=== PATIENT | female | born 1985 | race Caucasian/White ===

== ENCOUNTER 2017-01-28 04:45 | Emergency (ER) | payer SELFPAY ==
--- NOTE | ~2017-01-28 | CR72 ---
[facility] A Service of [facility] & [facility] RADIOLOGY TEXT RESULTS PATIENT: GUI GREENFIELD LOCATION: [facility] : 83 UNIT #: [id number] AGE: [address]: Abby Thacker MD SEX: F ORDER DR: [id number] [facility] [address] [place], [place] [address] [id number] MR#: [id number] Acc #: [id number] NAME: GUI GREENFIELD : 1985 SEX: F STUDY DATE/TIME: 01/28/2017 05:16 UNIT: [facility] ROOM: STUDY DESCRIPTION: CR Chest Single View Portable Attending Physician: Abby Thacker M.D. Ordering Physician: Yulia Cade A.P.R.N. Primary Care Physician: Primary Care Physician No MEDICAL IMAGING REPORT This report is preliminary unless electronic signature is present EXAM Portable chest 01/28/2017 0516 hours INDICATION Chest pain that started this morning. FINDINGS A single AP portable view of the chest shows both lungs to be clear. The heart is normal in size. The mediastinal contour is normal. No significant bone abnormalities are seen. IMPRESSION Normal portable chest. Dictated by... Sinan Davidson Jr., M.D. THIS IS AN ELECTRONICALLY VERIFIED REPORT Sinan Davidson Jr., M.D. at 01/28/2017 10:03 PM [place]/joseline TD: 01/28/2017 08:41 JOB #: [id number] MEDICAL IMAGING REPORT COPY
--- NOTE | ~2017-01-28 | EKG ---
PATIENT: GUI GREENFIELD UNIT #: [id number] Ventricular Rate: 66 BPM Atrial Rate: 66 BPM P-R Interval: 118 ms QRS Duration: 96 ms Q-T Interval: 418 ms QTC Calculation(Bezet): 438 ms P Catlett: 73 degrees Calculated R Catlett: 79 degrees Calculated T Catlett: 63 degrees Diagnosis Line: Normal sinus rhythm Diagnosis Line: Normal ECG Diagnosis Line: No previous ECGs available Diagnosis Line: Confirmed by BUD MORENO MD ([id number]) on 01/28/2017 Diagnosis Line: 5:45:53 PM INTERPRETING MD: TIFFANIE LAGUERRE
[2017-01-28 05:28] LABS: URINE SOURCE CLEAN CATCH
[2017-01-28 05:48] LABS: BASOPHIL# 0.1 X10e3 (0-0.3); BASOPHIL% 0.5 % (0-2.5); EOSINOPHIL# 0.5 X10e3 (0-0.7); EOSINOPHIL% 3.5 % (0.0-7.0); HEMATOCRIT 34.4 % (35.0-45.0); HEMOGLOBIN 11.4 gm/dL (12.0-16.0); LYMPHOCYTE# 3.6 X10e3 (1.0-3.5); LYMPHOCYTE% 26.3 % (17.0-45.0); MEAN CELL VOLUME 84.7 FL (83-96); MEAN CORPUSCULAR HEMOGLOBIN 28.2 PG (28-34); MEAN CORPUSCULAR HGB CONC 33.3 g/dL (30-36); MEAN PLATELET VOLUME 7.6 FL (6.5-11.5); MONOCYTE# 0.9 X10e3 (0-1.0); MONOCYTE% 6.6 % (3.0-12.0); NEUTROPHIL# 8.7 X10e3 (1.5-7.1); NEUTROPHIL% 63.1 % (40-75); PLATELET COUNT 315 X10e3 (140-420); RED BLOOD COUNT 4.06 X10e (3.90-5.30); RED CELL DISTRIBUTION WIDTH 13.9 % (11.0-15.5); WHITE BLOOD COUNT 13.8 X10e3 (4.0-10.5)
[2017-01-28 05:57] LABS: URINE APPEARANCE TURBID; URINE BILIRUBIN NEG (NEG); URINE BLOOD NEG (NEG); URINE COLOR DK YELLOW; URINE GLUCOSE NEG (NEG); URINE KETONE TRACE (NEG); URINE LEUKOCYTE ESTERASE TRACE (NEG); URINE NITRATE NEG (NEG); URINE PH 5.5 (5-8); URINE PROTEIN NEG (NEG)
[2017-01-28 05:58] LABS: DIFF IND NO
[2017-01-28 06:09] LABS: URINE SQUAMOUS EPITHELIAL CELL FEW /[HPF]
[2017-01-28 06:09] LABS: PARTIAL THROMBOPLASTIN TIME 25.9 SECONDS (23.5-31.3); PROTHROMBIN TIME (PATIENT) 10.7 SECONDS (9.6-11.5)
[2017-01-28 06:15] LABS: AMYLASE 19 U/L (0-46); LIPASE 19 U/L (22-51)
[2017-01-28 06:21] LABS: URINE CRYSTALS CALCIUM OXALATE /[HPF]
[2017-01-28 06:22] LABS: URINE MUCUS PRESENT
[2017-01-28 06:23] LABS: CULTURE INDICATED? NO; URINE BACTERIA AUWI NEG (NEGATIVE)
[2017-01-28 06:27] LABS: AMPHETAMINE POS (NEG); BARBITURATES NEG (NEG); BENZODIAZEPINES POS (NEG); COCAINE POS (NEG); MARIJUANA POS (NEG); OPIATES POS (NEG); TRICYCLIC ANTIDEPRESSANTS NEG (NEG); U METHADONE NEG (NEG)
[2017-01-28 06:51] LABS: ALKALINE PHOSPHATASE 68 U/L (32-92); ALT (SGPT) 20 U/L (10-40); AST (SGOT) 24 U/L (10-42); BLOOD UREA NITROGEN 16 mg/dL (9-23); BUN/CREATININE RATIO 22.85; CALCIUM SERUM 8.7 mg/dL (8.4-10.2); CARBON DIOXIDE 24 mmol/L (22-31); CHLORIDE 100 mmol/L (100-111); CREATININE SERUM 0.7 mg/dL (0.6-1.4); GLOM FILT RATE Estimated ABOVE60 mL/min (>60); GLUCOSE FASTING 112 mg/dL (70-110); POTASSIUM 3.6 mmol/L (3.5-5.1); PROTEIN TOTAL SERUM 6.4 g/dL (6.0-8.3); SODIUM 134 mmol/L (135-145)
[2017-01-28 06:52] LABS: BILIRUBIN, DIRECT <0.1 mg/dL (0.0-0.2); BILIRUBIN,TOTAL <0.1 mg/dL (0.2-2.0)
[2017-01-28 10:26] LABS: POC - CKMB 1.7 ng/mL (0.0-7.9); POC - TROPONIN <0.05 ng/mL (<=0.05)
== END 2017-01-28 08:40 | disposition left against medical advice (07) ==
LOC: CED 04:45
PROVIDERS: Nurse Practitioner; Student in an Organized Health Care Education/Training Program
DX: F41.9 Anxiety disorder, unspecified (principal); F19.10 Other psychoactive substance abuse, uncomplicated; Z86.19 Personal history of other infectious and parasitic diseases; Z88.0 Allergy status to penicillin; F17.210 Nicotine dependence, cigarettes, uncomplicated
CPT/HCPCS: 36415; 71010; 80048; 80076; 80307; 81003; 82150; 82553; 83690; 84484; 84703; 85025; 85610; 85730; 93005; 99284

== ENCOUNTER 2017-05-05 21:30 | Emergency (ER) | payer SELFPAY | END 2017-05-05 23:45 | disposition left against medical advice (07) | LOC: CED 21:30 | DX: Z53.21 Procedure and treatment not carried out due to patient leaving prior to being seen by health care provider (principal) ==

== ENCOUNTER 2017-06-02 16:48 | Emergency (ER) | payer OTHER ==
[2017-06-02 18:18] LABS: BASOPHIL# 0.1 X10e3 (0-0.3); BASOPHIL% 0.8 % (0-2.5); EOSINOPHIL# 0.2 X10e3 (0-0.7); HEMATOCRIT 36.9 % (35.0-45.0); HEMOGLOBIN 11.9 gm/dL (12.0-16.0); LYMPHOCYTE# 3.1 X10e3 (1.0-3.5); LYMPHOCYTE% 28.5 % (17.0-45.0); MEAN CELL VOLUME 87.5 FL (83-96); MEAN CORPUSCULAR HEMOGLOBIN 28.3 PG (28-34); MEAN CORPUSCULAR HGB CONC 32.3 g/dL (30-36); MEAN PLATELET VOLUME 8.1 FL (6.5-11.5); MONOCYTE# 0.7 X10e3 (0-1.0); MONOCYTE% 6.3 % (3.0-12.0); NEUTROPHIL# 6.8 X10e3 (1.5-7.1); NEUTROPHIL% 62.4 % (40-75); PLATELET COUNT 248 X10e3 (140-420); RED BLOOD COUNT 4.22 X10e (3.90-5.30); RED CELL DISTRIBUTION WIDTH 15.1 % (11.0-15.5); WHITE BLOOD COUNT 10.9 X10e3 (4.0-10.5)
[2017-06-02 18:19] LABS: DIFF IND NO
[2017-06-02 18:23] LABS: AMPHETAMINE POS (NEG); BARBITURATES NEG (NEG); BENZODIAZEPINES NEG (NEG); COCAINE NEG (NEG); MARIJUANA POS (NEG); OPIATES NEG (NEG); TRICYCLIC ANTIDEPRESSANTS NEG (NEG); U METHADONE NEG (NEG)
[2017-06-02 18:31] LABS: PARTIAL THROMBOPLASTIN TIME 26.1 SECONDS (23.5-31.3); PROTHROMBIN TIME (PATIENT) 10.8 SECONDS (10.0-11.7)
[2017-06-02 18:42] LABS: BILIRUBIN,TOTAL 0.4 mg/dL (0.2-2.0); BUN/CREATININE RATIO 28.33; CALCIUM SERUM 9.1 mg/dL (8.4-10.2); CREATININE SERUM 0.6 mg/dL (0.6-1.4); GLOM FILT RATE Estimated 120.6 mL/min (>60); POTASSIUM 3.6 mmol/L (3.5-5.1); PROTEIN TOTAL SERUM 8.2 g/dL (6.0-8.3)
== END 2017-06-02 18:50 | disposition home or self-care (01) ==
LOC: CFTX 16:48 → CED 16:48 → CFTX 17:10
PROVIDERS: Physician Assistant
DX: L03.115 Cellulitis of right lower limb (principal); F17.200 Nicotine dependence, unspecified, uncomplicated; Z88.0 Allergy status to penicillin
CPT/HCPCS: 80053; 80307; 84703; 85025; 85610; 85730; 87040; 99283